=== PATIENT | male | born 1970 | race Caucasian/White ===

== ENCOUNTER 2019-05-15 04:34 | Emergency (ER) | payer BC ==
[~2019-05-15] VITALS: Ht 180.3 cm; Wt 104.5 kg
[~2019-05-15 04:34] MED LIST: ASPIR-LOW81 MG PO; ASPIR-LOX325 MG PO; LIPITOR 10MG10 MG PO; MULTIPLE VITAMI1 TAB PO; MVI; PRILOSEC 20MG20 MG PO
[2019-05-15] MEDS ORDERED: ASPIRIN 81M81 MG/TA2 PO (05:55)
[2019-05-15 05:59] LABS: BASO % 0.3 % (0.0-2.0); EOS # 0.1 (0.0-0.7); EOS % 0.8 % (0-4.0); GRAN # 5.7 (1.4-6.5); GRAN % 61.9 % (42.2-75.2); HEMATOCRIT 45.8 % (42.0-52.0); HEMOGLOBIN 15.9 g/dl (13.5-18.0); LYMPH # 2.6 (1.2-3.4); LYMPH % 28.2 % (20.0-51.0); MEAN CELL VOLUME 89 fl (80.0-100.0); MEAN CORPUSCULAR HEMOGLOBIN 31 pg (27.0-31.0); MEAN CORPUSCULAR HGB CONC 35 g/dl (33.0-37.0); MEAN PLATELET VOLUME 9.8 fl (7.4-10.4); MONO # 0.8 (0.1-0.6); MONO % 8.5 % (1.7-9.3); PLATELET COUNT 234 K/mm3 (130-400); RED BLOOD COUNT 5.16 M/mm3 (4.20-5.60); REDCELL DISTRIBUTION WIDTH-CV 12.9 % (11.5-14.5)
[2019-05-15 06:06] LABS: ALANINE AMINOTRANSFERASE 31 U/L (21-72); ALBUMIN 4.6 gm/dL (3.5-5.0); ALKALINE PHOSPHATASE 87 U/L (50-136); ANION GAP 16 mmol/L (7-16); AST,SGOT 31 U/L (15-37); BILIRUBIN,TOTAL 0.7 mg/dL (0.0-1.0); BLOOD UREA NITROGEN 19 mg/dL (9-20); CALCIUM 9.9 mg/dL (8.4-10.2); CARBON DIOXIDE 20 mmol/L (22-30); CHLORIDE 107 mmol/L (98-107); CREATININE, serum 1.03 (0.66-1.25); GLUCOSE 149 mg/dL (74-106); LIPASE 71 U/L (23-300); POTASSIUM 3.1 mmol/L (3.4-5.0); SODIUM 143 mmol/L (137-145); TOTAL PROTEIN 8.1 gm/dL (6.4-8.2)
[2019-05-15 06:11] LABS: C-REACTIVE PROTEIN < 0.5 mg/dL (0.0-0.9)
[2019-05-15 06:17] LABS: COLLECTION METHOD CLEAN CATCH
[2019-05-15 06:29] LABS: MUCOUS Present /lpf; PH 8 (5-8); SQUAMOUS EPITHELIAL None Seen /hpf; URINE APPEARANCE Hazy; URINE BACTERIA None Seen /hpf; URINE BILIRUBIN Negative (NEGATIVE); URINE BLOOD Negative (NEGATIVE); URINE COLOR Straw; URINE GLUCOSE 1+ (NEGATIVE); URINE KETONE 1+ (NEGATIVE); URINE LEUKOCYTE ESTERASE Negative (NEGATIVE); URINE NITRATE Negative (NEGATIVE); URINE PROTEIN(semi-quant) Negative (NEGATIVE); URINE UROBILINOGEN Negative (NEGATIVE)
[2019-05-15] MEDS ORDERED: NORCO 325 MG-51 TAB PO (07:17)
[2019-05-15] MEDS ORDERED: ZOFRAN 4MG T4 MG/TAB PO (07:18)
[2019-05-15] MEDS ORDERED: FLOMAX 0.40.4 MG/CAP PO (07:28)
[2019-05-15 08:25] VITALS: BP 156/96; PULSE 77; TEMP 97.9
== END 2019-05-15 08:25 | disposition home or self-care (01) ==
LOC: COL.ER 04:34
PROVIDERS: Emergency Medicine
DX: N20.1 Calculus of ureter (principal); N23 Unspecified renal colic; E78.5 Hyperlipidemia, unspecified
CPT/HCPCS: J1885; J2270; J2405; J7030; Q9967

== ENCOUNTER 2019-05-30 15:08 | Day surgery (SDC) | payer BC ==
[~2019-05-30] VITALS: Ht 180.3 cm; Wt 103.7 kg
[2019-05-30] VITALS (7 sets, daily range): BP systolic 120–143; BP diastolic 62–85; PULSE 66–80; TEMP 98.3–98.7
[~2019-05-30 15:08] MED LIST changes: +ASPIRIN 81M81 MG/TA2 PO; +FLOMAX 0.40.4 MG/CAP PO; +NORCO 325 MG-51 TAB PO; +ZOFRAN 4MG T4 MG/TAB PO
[2019-05-30] MEDS ORDERED: PREVACID 30MG30 M1 PO (16:55)
--- NOTE | 2019-05-30 19:10 | NUR ---
Pt. arrived to the floor via strecher from PACU. Pt. able to ambulate to the bed independently. PACU nurse reported pt. urinated prior to coming up to the floor. Pt. denies pain or other needs. Vitals stable. Call light within reach.
--- NOTE | 2019-05-30 20:40 | NUR ---
Pt. has met discharge criteria. Pt. given discharge paper work. Pt. reviewd meds, and appointment date with pt. Pt. reviewed discharge instructions. Pt.'s questions answered. INT discontinued from lt. hand. Pt. tolerated well. Pt. escorted out with ENTRY LEVEL ACCOUNTING CLERK.
== END 2019-05-30 20:45 | disposition home or self-care (01) ==
LOC: SDCO 15:08 → SURG 19:10 → SDCO 20:45
DX: N20.1 Calculus of ureter (principal); E78.00 Pure hypercholesterolemia, unspecified; K21.9 Gastro-esophageal reflux disease without esophagitis; Z87.442 Personal history of urinary calculi; Z79.82 Long term (current) use of aspirin; G47.33 Obstructive sleep apnea (adult) (pediatric)
CPT/HCPCS: OP; C1769; C1894; C2617; J0690; J1100; J1885; J2405; J2704; J3010; Q9967